=== PATIENT | male | born 1970 | race Caucasian/White ===

== ENCOUNTER 2024-05-18 11:25 | Outpatient (CLI) | payer OTHER, SELFPAY ==
--- NOTE | ~2024-05-18 | US_ITS ---
LEFT LOWER EXTREMITY VENOUS ULTRASOUND Ordering provider: Diana Armijo, CRISTOFER History: . unspecified injury of lt lower leg . Comparison: None. FINDINGS: --COMMON FEMORAL: Patent and free of thrombus. Normal compressibility, phasic flow and augmentation. --PROXIMAL SUPERFICIAL FEMORAL: Patent and free of thrombus. Normal compressibility, phasic flow and augmentation. --DISTAL SUPERFICIAL FEMORAL: Patent and free of thrombus. Normal compressibility, phasic flow and au gmentation. --POPLITEAL: Patent and free of thrombus. Normal compressibility, phasic flow and augmentation. --POSTERIOR TIBIAL: Patent and free of thrombus. Normal compressibility, phasic flow and augmentation . Hematoma is seen laterally in the knee measuring 4 cm. IMPRESSION: Negative left lower extremity venous US. No deep vein thrombosis. Material seen laterally in the left knee measuring 4 cm. Clinical correlation advised. Reviewed, dictated and finalized at location A. IMPRESSION: Negative left lower extremity venous US. No deep vein thrombosis. Material seen laterally in the left knee measuring 4 cm. Clinical correlation a dvised.
== END 2024-05-18 11:26 | disposition home or self-care (01) ==
LOC: GOSHIMG 11:26
PROVIDERS: PCP Physician Assistant; Visit Provider Physician Assistant
DX: S89.92XA Unspecified injury of left lower leg, initial encounter (principal); X58.XXXA Exposure to other specified factors, initial encounter
CPT/HCPCS: 93971

== ENCOUNTER 2024-05-26 15:36 | Outpatient (CLI) | payer OTHER, SELFPAY ==
--- NOTE | ~2024-05-26 | XR_ITS ---
EXAMINATION: XR femur LT min 2V DATE: 05/26/2024 15:53 INDICATION: Kicked by horse 2 weeks prior with bruising at the anterior knee TECHNIQUE: Overlapping proximal and distal, AP and lateral views of the right femur were obtained. COMPARISON: None FINDINGS: Alignment is normal. No fracture. Joint spaces appear normal but with small marginal osteophytes all 3 compartments of the right knee and small marginal osteophytes at the hip joint consistent with mil d osteoarthritis. No left knee joint effusion. Mild prepatellar soft tissue swelling and mild subcuta neous edema about the knee and distal thigh. IMPRESSION: 1. Mild osteoarthritis at the left hip and knee. No acute osseous abnormality. Reviewed, dictated and finalized at location A.
--- NOTE | ~2024-05-26 | XR_ITS ---
EXAMINATION: XR tibia fibula LT 2V DATE: 05/26/2024 15:53 INDICATION: Bruising anterior to the left knee after being kicked by a horse TECHNIQUE: Anteroposterior and lateral views of the left tibia and fibula were obtained. COMPARISON: None. FINDINGS: Bone alignment is normal. No fracture. Visualized portion of the joint spaces are normal. Diffuse sof t tissue swelling along the lateral mid left calf and both anteriorly, medially and laterally at the distal lower leg and about the lateral malleolus. IMPRESSION: 1. No osseous abnormality. Reviewed, dictated and finalized at location A. IMPRESSION: 1. No osseous abnormality.
== END 2024-05-26 15:37 | disposition home or self-care (01) ==
LOC: GOSHIMG 15:37
PROVIDERS: PCP Physician Assistant; Visit Provider Physician Assistant
DX: S89.92XD Unspecified injury of left lower leg, subsequent encounter (principal); X58.XXXD Exposure to other specified factors, subsequent encounter; M17.12 Unilateral primary osteoarthritis, left knee; M16.12 Unilateral primary osteoarthritis, left hip
CPT/HCPCS: 73552; 73590

== ENCOUNTER 2025-07-17 11:46 | Outpatient (CLI) | payer OTHER, SELFPAY ==
--- NOTE | ~2025-07-17 | XR_ITS ---
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 Technique: 2 views obtained. Findings: The lungs are clear, no effusion. No pneumothorax. Heart is normal size. Mediastinal and hilar contours are within normal limits. Bony thorax no acute abnormality. Impression: No acute cardiopulmonary abnormality. Reviewed, dictated and finalized at location P. 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
== END 2025-07-17 11:47 | disposition home or self-care (01) ==
LOC: GOSHIMG 11:47
PROVIDERS: PCP Physician Assistant; Visit Provider Physician Assistant
DX: R09.89 Other specified symptoms and signs involving the circulatory and respiratory systems (principal)
CPT/HCPCS: 71046